=== PATIENT | female | born 2000 | race Caucasian/White ===

== ENCOUNTER 2022-07-02 14:01 | Outpatient (CLI) | payer OTHER, SELFPAY ==
--- NOTE | ~2022-07-02 | US_ITS ---
EXAMINATION: US OB BPP wo non-stress DATE: 07/02/2022 15:37 INDICATION: Hypertension during third trimester TECHNIQUE: Real-time pelvic ultrasound was performed. The interpreting radiologist was not present fo r the study. COMPARISON: None. FINDINGS: There is a single living fetus in vertex presentation. The placenta is fundal. heart rate is 13 6 beats per minute (bpm). Biophysical profile performed by the technologist: breathing (30 sec sustained breathing in 30 minutes): 2 out of 2 movement (3 gross body movements in 30 minutes): 2 out of 2 tone (one episode of dajfail-uaarsnawh-jdanadw limb movement): 2 out of 2 Amniotic fluid pocket (2 cm): 2 out of 2 Total score: 8 out of 8 IMPRESSION: 1. Single living fetus in vertex presentation. 2. Biophysical profile 8 out of 8. Reviewed, dictated and finalized at location B. UNICATIONS ATTENDANT
[2022-07-02 14:30] VITALS: BP 134/77; PULSE 110
[2022-07-02 14:39] LABS: Basophils Absolute Auto 0.1 K/mm3 (0.0-0.1); Basophils Percent Auto 0.6 % (0.2-1.2); Eosinophils Absolute Auto 0.1 K/mm3 (0-0.3); Eosinophils Percent Auto 0.7 % (0-4.4); Hematocrit 33.3 % (37.0-47.0); Hemoglobin 10.8 g/dL (12.0-15.0); Immature Granulocyte Absolute 0.58 K/mm3 (0.00-0.031); Immature Granulocyte Percent A 3.2 % (0-0.5); Lymphocytes Absolute Auto 2.21 K/mm3 (0.9-3.2); Lymphocytes Percent Auto 12.2 % (18.3-44.2); Mean Corpuscular HGB Conc 32.4 g/dl (32-36); Mean Corpuscular Hemoglobin 25.5 pg (26-34); Mean Corpuscular Volume 78.5 fl (80-100); Mean Platelet Volume 8.7 fl (7.4-10.4); Monocytes Absolute Auto 1.1 K/mm3 (0.1-0.6); Monocytes Percent Auto 5.9 % (2.6-8.5); Neutrophils Absolute Auto 14.1 K/mm3 (1.3-6.7); Neutrophils Percent Auto 77.4 % (45.5-73.1); Platelet Count Result 381 k/mm3 (150-375); Red Blood Count 4.24 M/mm3 (4.2-5.4); Red Cell Distribution Width 13.8 % (11.5-14.5); White Blood Count 18.2 K/mm3 (4.5-10.0)
[2022-07-02 14:39] LABS: Total Protein Urine Random 10 mg/dL; Ur Ttl Prot Creatinine Ratio 0.17 mg/mg (0-0.20)
[2022-07-02 14:44] VITALS: BP 134/77
[2022-07-02 14:45] VITALS: BP 126/65; PULSE 94
[2022-07-02 14:51] LABS: Alanine Aminotransferase 17 U/L (6-35); Albumin Level 3.7 g/dL (3.5-5.1); Alkaline Phosphatase 100 U/L (38-126); Anion Gap 8 mmol/L (8-16); Aspartate Amino Transferase 20 U/L (14-36); Bilirubin,Total 0.2 mg/dL (0.2-1.3); Blood Urea Nitrogen 3 mg/dL (7-17); Calcium 8.4 mg/dL (8.4-10.2); Carbon Dioxide 22 mmol/L (22-30); Chloride 105 mmol/L (98-107); Estimated Glomerular Filt Rate > 60; Glucose 151 mg/dL (65-110); Potassium 3.8 mmol/L (3.4-5.0); Sodium 135 mmol/L (137-145); Uric Acid 3.7 mg/dL (2.5-7.5)
[2022-07-02 15:01] VITALS: BP 116/61; PULSE 90
[2022-07-02 15:24] VITALS: BP 116/61; PULSE 90
[2022-07-02 15:43] LABS: Add Urine Microscopic? YES; Appearance Urine Slightly Cloudy (Clear); Bilirubin Urine Negative (Negative); Blood Urine Negative (Negative); Color Urine Light Yellow (Yellow); Glucose Urine UA 1+ mg/dL (Negative); Ketones Urine Negative (Negative); Leukocyte Esterase Ur Negative LEU/UL (NEGATIVE); Nitrate Urine Negative (Negative); Protein Urine Negative (Negative); Urobilinogen Urine 0.2 mg/dL (<2.0); pH Urine 6.5 (5.0-9.0)
[2022-07-02 15:54] LABS: Bacteria Urine Trace /hpf; RBC Urine 0-2 /hpf (0-2); Squamous Epithelial Cell Urine Many /hpf (Few)
== END 2022-07-02 15:50 | disposition home or self-care (01) ==
LOC: ANHOBOP 14:12 → ANHLDR 14:13
PROVIDERS: Advanced Practice Midwife; Visit Provider Obstetrics & Gynecology
DX: O13.9 Gestational [pregnancy-induced] hypertension without significant proteinuria, unspecified trimester (principal)
CPT/HCPCS: 36415; 59025; 76819; 80053; 81001; 82570; 84156; 84550; 85025; 87086; 99199

== ENCOUNTER 2022-07-09 14:52 | Outpatient (CLI) | payer OTHER, SELFPAY ==
[2022-07-09] VITALS (7 sets, daily range): BP systolic 120–135; BP diastolic 71–82; PULSE 95–110; BMI 43.9
--- NOTE | ~2022-07-09 | US_ITS ---
EXAMINATION: US OB BPP wo non-stress DATE: 07/09/2022 17:29 INDICATION: Hypertension. TECHNIQUE: Real-time ultrasound of the pelvis was performed. COMPARISON: 07/02/2022. FINDINGS: There is a single living fetus in vertex presentation, longitudinal lie. The placenta is posterior. heart rate is 130 beats per minute (bpm). macro biometrics Biophysical profile performed by the technologist: breathing (30 sec sustained breathing in 30 minutes): 2 out of 2 movement (3 gross body movements in 30 minutes: 2 out of 2 tone (one episode of fjnirtz-boksdvlog-oztecwq limb movement): 2 out of 2 Amniotic fluid pocket (2 cm): 2 out of 2 Total score: 8 out of 8 IMPRESSION: 1. Single living fetus in vertex presentation. 2. Posterior placenta. 3. Biophysical profile 8 out of 8. Reviewed, dictated and finalized at location K. Y LEVEL RECEPTIONIST
--- NOTE | 2022-07-09 16:20 | PC.NURSE ---
Dr. Groves called to check on pt and informed FHT's reactive and BP's normal. Waiting for lab results and for BPP.
[2022-07-09 16:43] LABS: Add Urine Microscopic? YES; Appearance Urine Slightly Cloudy (Clear); Basophils Absolute Auto 0.1 K/mm3 (0.0-0.1); Basophils Percent Auto 0.6 % (0.2-1.2); Bilirubin Urine Negative (Negative); Blood Urine Trace-Intact (Negative); Color Urine Yellow (Yellow); Eosinophils Absolute Auto 0.1 K/mm3 (0-0.3); Eosinophils Percent Auto 0.5 % (0-4.4); Glucose Urine UA Negative (Negative); Hematocrit 34.9 % (37.0-47.0); Immature Granulocyte Absolute 0.91 K/mm3 (0.00-0.031); Immature Granulocyte Percent A 4.2 % (0-0.5); Immature Platelet Fraction Pct 3.2 % (0.9-11.2); Ketones Urine Negative (Negative); Leukocyte Esterase Ur Negative LEU/UL (Negative); Lymphocytes Absolute Auto 2.66 K/mm3 (0.9-3.2); Lymphocytes Percent Auto 12.3 % (18.3-44.2); Mean Corpuscular HGB Conc 31.5 g/dl (32-36); Mean Corpuscular Volume 79.3 fl (80-100); Mean Platelet Volume 9.6 fl (7.4-10.4); Monocytes Absolute Auto 1.4 K/mm3 (0.1-0.6); Monocytes Percent Auto 6.5 % (2.6-8.5); Neutrophils Absolute Auto 16.5 K/mm3 (1.3-6.7); Neutrophils Percent Auto 75.9 % (45.5-73.1); Nitrate Urine Negative (Negative); Platelet Count Result 415 k/mm3 (150-375); Protein Urine Negative (Negative); Red Cell Distribution Width 14.2 % (11.5-14.5); Urobilinogen Urine 0.2 mg/dL (<2.0); White Blood Count 21.7 K/mm3 (4.5-10.0)
[2022-07-09 16:51] LABS: Alanine Aminotransferase 18 U/L (6-35); Albumin Level 3.7 g/dL (3.5-5.1); Alkaline Phosphatase 109 U/L (38-126); Anion Gap 8 mmol/L (8-16); Aspartate Amino Transferase 20 U/L (14-36); Bilirubin,Total 0.3 mg/dL (0.2-1.3); Blood Urea Nitrogen 3 mg/dL (7-17); Calcium 8.7 mg/dL (8.4-10.2); Carbon Dioxide 23 mmol/L (22-30); Chloride 105 mmol/L (98-107); Estimated Glomerular Filt Rate > 60; Glucose 117 mg/dL (65-110); Potassium 3.6 mmol/L (3.4-5.0); Sodium 136 mmol/L (137-145); Uric Acid 2.9 mg/dL (2.5-7.5)
[2022-07-09 16:56] LABS: Amorphous Sediment Urine Few; Bacteria Urine Trace /hpf; Mucus Urine Rare /lpf; Squamous Epithelial Cell Urine Moderate /hpf (Few); WBC Urine 0-3 /hpf
[2022-07-09 17:22] LABS: Creatinine Urine 55.9 mg/dL; Total Protein Urine Random 13 mg/dL; Ur Ttl Prot Creatinine Ratio 0.23 mg/mg (0-0.20)
[2022-07-09 17:33] LABS: Platelet Estimate Increased (Adequate)
[2022-07-09 17:34] LABS: Ovalocytes 1+ (NORMAL); Schistocytes None Seen (NORMAL)
--- NOTE | 2022-07-09 17:58 | PC.NURSE ---
Dr. Groves informed BPP 02/10 and lab results. Discussed pt's elevated WBC count. Phone taken to pt for MD to talk with her over speakerphone. Pt denies being sick recently; just had a yeast infection approximately 1 month ago. Discussed kick counts 3 times/day and to start 24 hr urine in am and when specimen is returned to the office they should draw a repeat CBC. Discharge orders received.
== END 2022-07-09 18:15 | disposition home or self-care (01) ==
LOC: ANHOBOP 15:12 → ANHOBPP 15:16
PROVIDERS: Visit Provider Obstetrics & Gynecology
DX: O36.8190 Decreased fetal movements, unspecified trimester, not applicable or unspecified (principal)
CPT/HCPCS: 36415; 59025; 76819; 80053; 81001; 82570; 84156; 84550; 85025; 85055; 99199

== ENCOUNTER 2022-07-12 15:01 | Outpatient (NON) | payer OTHER, SELFPAY ==
[2022-07-12 15:13] VITALS: BMI 43.9
[2022-07-12 15:36] LABS: Collection Time Urine 24 HOURS
[2022-07-12 15:46] LABS: Total Volume 24 Hour Urine 2400 ml
[2022-07-12 15:57] LABS: Creatinine Clearance Urine 200.5 ml/min (75-125); Creatinine Urine 63.2 mg/dL; Patient Weight 272 Lbs; Total Protein Urine 24 Hr 240 mg/24hr (28-141); Total Protein Urine Random 10 mg/dL
== END 2022-07-12 15:02 | disposition home or self-care (01) ==
LOC: ANHOBOP 15:07
PROVIDERS: Visit Provider Obstetrics & Gynecology
DX: O13.9 Gestational [pregnancy-induced] hypertension without significant proteinuria, unspecified trimester (principal)
CPT/HCPCS: 81050; 82575; 84156

== ENCOUNTER 2022-07-31 22:59 | Observation (INO) | payer OTHER, SELFPAY ==
[2022-08-01 00:39] VITALS: BMI 44.1
--- NOTE | 2022-08-01 00:39 | OBADM ---
This patient, Zoraida Gonzalez, admitted to the OB room Labor/Delivery/Recovery 105 for observation. Patient/family oriented to hospital policies and general routines including ID bracelet, bed and alarms, visiting hours, pain management, procedures, bathroom and other care routines, personal items, smoking policy, room service/diet, and visiting hours. Patient/Family are encouraged to report perceived risks to care and to ask questions if they do not understand what they are told or what they should do.
--- NOTE | 2022-08-25 09:23 | PM.OBTRLD ---
OB - Triage/Final Diagnosis Visit Information Comments/Additional reasons for admission: I have assessed the risk for this patient, Zoraida Gonzalez, and determined that she would benefit from observation care. Final Diagnosis (1) False labor: Code(s): O47.9 - False labor, unspecified Status: Acute
== END 2022-08-01 00:54 | disposition home or self-care (01) ==
PROVIDERS: Admitting Provider Obstetrics & Gynecology; Visit Provider Obstetrics & Gynecology
DX: O47.9 False labor, unspecified (principal)
CPT/HCPCS: G0378; G0379

== ENCOUNTER 2022-08-11 05:02 | Inpatient (IN) | payer OTHER, SELFPAY ==
[2022-08-11] VITALS (92 sets, daily range): BP systolic 114–152; BP diastolic 59–93; PULSE 74–112; RESP 18; TEMP 36.8–37.7; O2SAT 98–100; BMI 44.1
--- OUTSIDE RECORDS SUMMARY | 2022-08-11 05:07 | XMS_ITS | Clinical Summary ---
Author Name Unknown Address [address] [place] [address] Phone Organization [facility] Address [address] [place] [address] Phone Care Team Providers Care Elevated Work Platform Operator Name Role Phone ANNE HERNANDEZ, VASILIY Mitchell Primary Care Provider [phone] Reason for Visit and Chief Complaint * PHONE CALL Problems Includes: Problems addressed during this encounter and other active Problems All Visits Onset Date Resolved Date Provider Condition S tatus Essential Hypertension Benign 11/04/2015 VASILIY RODRÍGUEZ MD Active Last Documented On 11/04/2015 7:56PM ; [facility] Note: Unchanged Plan of Treatment No Plan of Treatment Recorded Assessments Includes: Assessments from this encounter No Assessments Recorded Medical Equipment - Implanted Devices Includes: Current Devices No Medical Equipment Recorded Medications Administered Includes: Administered Medications from this encounter No Administered Medications Recorded Results Includes: Results discussed during this encounter No Results Recorded For Specified Dates History of Present Illness Includes: History of Present Illness from this encounter No History of Present Illness Recorded Social History No Social History Recorded - Smoking Status Unknown Medical History Includes: Medical History addressed during this encounter No Medical History Recorded Family History Includes: Family History addressed during this encounter No Family History Recorded Review of Systems Includes: Review of Systems from this encounter No Review of Systems Recorded Mental Status Includes: Mental Status from this encounter No Mental Status Recorded Functional Status Includes: Functional Status from this encounter No Functional Status Recorded
--- OUTSIDE RECORDS SUMMARY | 2022-08-11 05:07 | XMS_ITS | Clinical Summary ---
Author Name Unknown Address [address] [place], [place] Phone Organization [facility] Address [address] [place] [address] Phone Care Team Providers Care Allergy Nurse Name Role Phone ANNE HERNANDEZ, VASILIY Mitchell Primary Care Provider [phone] Reason for Visit and Chief Complaint The Chief Complaint is: Patient thinks she may have ringworm- Vitals taken by patient at home. ~ ~TELEHEALTH VISIT USING [employer] AND WE DISCUSSED HER ISSUES. SHE WAS AWARE THIS IS TELEVISIT AND THAT THOUGH WE MAKE ALL EFFORTS TO BE SECURE WE CANNOT GARENTEE SECURE CONNECTION AND SHE AGREED TO THE VISIT ANYWAY. VISIT LASTED ABOUT 12-15 MINUTES Problems Includes: Problems addressed during this encounter and other active Problems Current Visit Onset Date Resolved Date Provider Lucina richards Status Essential Hypertension Benign 11/04/2015 VASILIY RODRÍGUEZ MD Active Last Documented On 11/04/2015 7:56PM ; [facility] Note: Unchanged Plan of Treatment No Plan of Treatment Recorded Assessments Includes: Assessments from this encounter Findings - Tinea corporis [B35.4 - Tinea corporis] - Last Documented On 10/29/2020 5:50AM ; [facility] Medical Equipment - Implanted Devices Includes: Current Devices No Medical Equipment Recorded Medications Includes: Medications discussed during this encounter and other current Medications Discontinued / Stopped on this date CHILO HINTON-MILTON on 06/25/2020 Fluconazole 150 MG Oral Tablet Provider: CHILO STERN Diagnosis: Tinea leah
--- OUTSIDE RECORDS SUMMARY | 2022-08-11 05:07 | XMS_ITS | Clinical Summary ---
Author Name Unknown Address [address] [place] [address] [address] [facility] Address [address] [place] [address] Phone Care Team Providers Care Medical Record Transcriber Name Role Phone ANNE HERNANDEZ, VASILIY Mitchell Primary Care Provider [phone] Reason for Visit and Chief Complaint [Patient Encounter] Problems Includes: Problems addressed during this encounter and other active Problems All Visits Onset Date Resolved Date Provider Condition S tatus Essential Hypertension Benign 11/04/2015 VASILIY RODRÍGUEZ MD Active Last Documented On 11/04/2015 7:56PM ; [facility] Note: Unchanged Plan of Treatment No [...]
--- OUTSIDE RECORDS SUMMARY | 2022-08-11 05:07 | XMS_ITS | Clinical Summary ---
Author Name Unknown Address [address] [place] [address] Phone Organization [facility] Address [address] [place] [address] Phone Care Team Providers Care Campaign Worker Name Role Phone ANNE HERNANDEZ, VASILIY Mitchell Primary Care Provider [phone] Reason for Visit and Chief Complaint * PHONE CALL Problems Includes: Problems addressed during this encounter and other active Problems All Visits Onset Date Resolved Date Provider Condition S tatus Essential Hypertension Benign 11/04/2015 VASILIY RODRÍGUEZ MD Active Last Documented On 11/04/2015 7:56PM ; [facility] Note: Unchanged Plan of Treatment No Plan of Treatment Recorded Assessments Includes: Assessments from this encounter No Assessments Recorded Medical Equipment - Implanted Devices Includes: Current Devices No Medical Equipment Recorded Medications Includes: Medications discussed during this encounter and other current Medications New / Renewed during this visit VASILIY RODRÍGUEZ MD on 05/17/2021 LamISIL AT 1% External Cream Provider: VASILIY RODRÍGUEZ MD 14 day supply: 42 gram, 1 refills Diagnosis: Tinea corporis Apply twice a day APPLY BID FOR 14-21 days Pharmacy: [facility], [address] - Past Medications on file
--- OUTSIDE RECORDS SUMMARY | 2022-08-11 05:07 | XMS_ITS ---
Care Plan - [facility] Created on: August 11, 2022 PAGE JOSHI : 2000 Sex: Female Author Name Unknown Address [address] [place] [address] Phone Organization [facility] Address [address] [place] [address] Phone Care Team Providers Care Production Statistical Clerk Name Role Phone VASILIY RODRÍGUEZ MD Primary Care Provider [phone]
--- OUTSIDE RECORDS SUMMARY | 2022-08-11 05:07 | XMS_ITS ---
Author Name Unknown Address [address] [place] [address] Phone Organization [facility] Address [address] [place] [address] Phone Care Team Providers Care Nuclear Weapons Mechanical Specialist Name Role Phone ANNE HERNANDEZ, VASILIY Mitchell Primary Care Provider [phone] Reason for Referral Date Encounter Description Provider Reason for Referral 10/11/15 PROBLEM VISIT VASILIY RODRÍGUEZ MD Request Consultation By Allied Medical Professional Problems Includes: Active, inactive, and resolved Problems All Visits Onset Date Resolved Date Provider Condition S tatus Chronic Hypertensive Heart Disease Complicating Puerperium 01/12/2019 Unknown AMITA FLEMING WHNP-BC Resolved Last Documented On 05/23/2019 4:00PM ; [facility] Note: Unchanged Pre-existing essential htn comp , first trimester 06/30/2018 Unknown AMITA FLEMING WHNP-BC Resolved Last Documented On 05/23/2019 4:00PM ; [facility] Note: Unchanged History of Allergic Rhinitis 06/30/2018 Unknown GREGG MORGAN MD Resolved Last Documented On 02/28/2019 3:35PM ; [facility] Note: was Closed. History of Breast Disorders 06/30/2018 Unknown GREGG MORGAN MD Resolved Last Documented On 02/28/2019 3:35PM ; [facility]
[2022-08-11 05:52] LABS: Basophils Absolute Auto 0.1 K/mm3 (0.0-0.1); Basophils Percent Auto 0.6 % (0.2-1.2); Eosinophils Percent Auto 0.3 % (0-4.4); Hematocrit 35.8 % (37.0-47.0); Hemoglobin 11.4 g/dL (12.0-15.0); Immature Granulocyte Absolute 0.26 K/mm3 (0.00-0.031); Immature Granulocyte Percent A 1.9 % (0-0.5); Lymphocytes Absolute Auto 2.97 K/mm3 (0.9-3.2); Lymphocytes Percent Auto 21.3 % (18.3-44.2); Mean Corpuscular HGB Conc 31.8 g/dl (32-36); Mean Corpuscular Hemoglobin 24.4 pg (26-34); Mean Corpuscular Volume 76.7 fl (80-100); Mean Platelet Volume 9.3 fl (7.4-10.4); Neutrophils Absolute Auto 9.6 K/mm3 (1.3-6.7); Neutrophils Percent Auto 68.9 % (45.5-73.1); Platelet Count Result 372 k/mm3 (150-375); Red Blood Count 4.67 M/mm3 (4.2-5.4); Red Cell Distribution Width 15.8 % (11.5-14.5); White Blood Count 13.9 K/mm3 (4.5-10.0)
--- NOTE | 2022-08-11 05:54 | LDADM ---
This patient, Zoraida Gonzalez, was admitted to Labor/Delivery/Recovery 105 on 08/11/22 at 05:02. Plans for labor, pain management and were discussed with patient. Patient/family oriented to hospital policies and general routines including ID bracelet, bed and alarms, visiting hours, pain management, procedures, bathroom and other care routines, personal items, smoking policy, room service/diet and guest tray routines, infant security routines, and visiting hours. Patient/Family are encouraged to report perceived risks to care and to ask questions if they do not understand what they are told or what they should do. See OBIX for further documentation.
[2022-08-11 06:04] LABS: Alanine Aminotransferase 20 U/L (6-35); Albumin Level 3.2 g/dL (3.5-5.1); Alkaline Phosphatase 131 U/L (38-126); Anion Gap 6 mmol/L (8-16); Aspartate Amino Transferase 27 U/L (14-36); Bilirubin,Total 0.4 mg/dL (0.2-1.3); Blood Urea Nitrogen 5 mg/dL (7-17); Calcium 8.6 mg/dL (8.4-10.2); Carbon Dioxide 23 mmol/L (22-30); Chloride 108 mmol/L (98-107); Estimated CRCL calculation 237 ml/min; Estimated Glomerular Filt Rate > 60; Glucose 89 mg/dL (65-110); Potassium 3.8 mmol/L (3.4-5.0); Sodium 137 mmol/L (137-145)
[2022-08-11] MEDS: LACTATED RINGERS 1,000 ML 125 ML IV CONT ×2 (06:25→09:23)
[2022-08-11] MEDS: OXYTOCIN 30 UNITS/NS 500 ML 30 UNITS/500 ML BAG IV CONT (06:28)
--- NOTE | 2022-08-11 07:54 | WPDOBADMIT ---
Obstetrics - Admit Note Admission Note: 22 y/o at 38 weeks here for induction for CHTN. Rare contractions FHR category 1 Cervix 70/-2 Arom moderate amount of clear odorless fluid Epidural as desired Anticipate record reviewed. No pertinent additions to the history and/or any subsequent changes in the physical findings that are not consistent with the expected course of the were found. Additions to the history and/or subsequent changes in the physical findings follow. None.
--- NOTE | 2022-08-11 07:55 | PM.IMHP ---
H&P: HPI History of Present Illness Date/Time: 08/11/22 07:55 Chief Complaint: Induction of labor 38weeks CHTN Review of Systems Review of Systems: All systems reviewed & are unremarkable except as noted in HPI and below Constitutional: Constitutional: Reports as per HPI and Reports no additional constitutional complaints Eyes: Eyes: Reports as per HPI ENT: Reports system reviewed and no additional complaints, except as documented Cardiovascular: Cardiovascular: Reports as per HPI Respiratory: Respiratory: Reports as per HPI Gastrointestinal: Gastrointestinal: Reports as per HPI Genitourinary: Genitourinary: Reports no additional female genitourinary complaints Musculoskeletal: Musculoskeletal: Reports no additional musculoskeletal complaints Integumentary/Breasts: Skin/Breast: Reports system reviewed and no additional complaints, except as docu Neurologic: Reports system reviewed and no additional complaints, except as documented Psychiatric: Psychiatric: Reports no additional psychiatric complaints Endocrine: Endocrine: Reports no additional endocrine complaints Hematologic/Lymphatic: Hematologic/Lymphatic: Reports no additional hematologic/lymphatic complaints Allergic/Immunologic: Allergic/Immunologic: Reports no additional allergic/immunologic complaints [facility] Family History Family History (Updated 07/30/22 @ 12:21 by Chica Rubin RN) Mother Hypertension Father Hypertension Social History Social History Smoking status: Never smoker Second hand tobacco smoke exposure: No Substance use: never Lack of Transportation: No Lack of Food: Never True Current Housing: I Have Housing Concerned About Future Housing: No Difficulty Paying Gas/Electric Bills: No Difficulty Paying for Meds: No Currently Unemployed: No Education: High School Diploma/GED Difficulty w/ Childcare or Family Care: No Spiritual care concerns: No Meds Home Medications and Allergies Home Medications Medication Instructions Recorded Confirmed Type nifedipine 30 mg tablet,extended 30 mg PO DAILY 07/02/22 08/11/22 History release 24 hr vit no.133-ferrous 1 tablet PO DAILY 07/02/22 08/11/22 History fumarate 28 mg-folic acid 800 mcg tablet () Allergies Allergy/AdvReac Type Severity Reaction Status Date / Time Penicillins Allergy Intermediate Unknown Verified 08/11/22 06:24 Vital Signs Vital Signs - 24 hr 08/11/22 05:54 08/11/22 06:01 08/11/22 06:16 Pulse Rate 83 87 79 Blood Pressure 139/83 139/83 136/92 H 08/11/22 06:31 08/11/22 06:46 08/11/22 07:01 Pulse Rate 85 81 83 Blood Pressure 135/78 130/82 128/80 08/11/22 07:16 08/11/22 07:31 08/11/22 07:46 Pulse Rate 86 93 86 Blood Pressure 134/84 138/75 139/74 Exam Const: General: cooperative and healthy appearing Orientation/consciousness: oriented to person, oriented to place, oriented to time and patient oriented x3 Limitations: no limitations HENMT: Head: normal to inspection Ears: hearing grossly normal bilaterally Face/Nose/Sinus: Normal external nose present and normal facial exam Face and sinus: normal facial exam Mouth: Yes Normal oral and palatal mucosa present Teeth and gingiva: dentition normal Throat: posterior oropharynx normal Eyes: General: appearance normal, both eyes and all related structures Neck: Neck: normal visual inspection Thyroid: thyroid normal Chest: Chest palpation & inspection: normal inspection of the chest Resp: Effort & Inspection: normal respiratory effort Auscultation: clear to auscultation bilaterally Cardio: Rate: regular rate Rhythm: regular rhythm GI: Inspection: normal to inspection : General: Yes bimanual renal exam normal bilaterally Skin: General skin exam: normal color and no rashes or lesions noted Neuro: General: oriented to person, oriented to place, oriented to time and patient oriented x3 Extrem: General: n
[2022-08-11 10:12] LABS: Rapid Plasma Reagin Non-Reactive (NonReactive)
--- NOTE | 2022-08-11 10:19 | WPDANESEPP ---
Anes - Eval Pre Procedure Procedure: Labor Epidural Date/Time: 08/11/22 10:19 Surgeon: Germain Preop Diagnosis: Labor Pain Pre Op Diagnosis: IOL Patient Data Age: 22 Gender: F Height: 1.68 m Weight: 124 kg Last Vital Signs Pulse 98 08/11/22 10:16 BP 137/68 08/11/22 10:16 Pulse Ox 100 08/11/22 10:15 Allergies Allergy/AdvReac Type Severity Reaction Status Date / Time Penicillins Allergy Intermediate Unknown Verified 08/11/22 06:24 Home Medications Medication Instructions Recorded Confirmed Type nifedipine 30 mg tablet,extended 30 mg PO DAILY 07/02/22 08/11/22 History release 24 hr vit no.133-ferrous 1 tablet PO DAILY 07/02/22 08/11/22 History fumarate 28 mg-folic acid 800 mcg tablet () Laboratory Tests 08/11/22 08/11/22 08/11/22 05:43 05:43 05:43 WBC 13.9 K/mm3 H K/mm3 (4.5-10.0) RBC 4.67 M/mm3 M/mm3 (4.2-5.4) Hgb 11.4 g/dL L g/dL (12.0-15.0) Hct 35.8 % L % (37.0-47.0) MCV 76.7 fl L fl (80-100) MCH 24.4 pg L pg (26-34) MCHC 31.8 g/dl L g/dl (32-36) RDW 15.8 % H % (11.5-14.5) Plt Count 372 k/mm3 k/mm3 (150-375) MPV 9.3 fl fl (7.4-10.4) Immature Gran % (Auto) 1.9 % H % (0-0.5) Neut % (Auto) 68.9 % % (45.5-73.1) Lymph % (Auto) 21.3 % % (18.3-44.2) Woods % (Auto) 7.0 % % (2.6-8.5) Eos % (Auto) 0.3 % % (0-4.4) Baso % (Auto) 0.6 % % (0.2-1.2) Lymph # (Auto) 2.97 K/mm3 K/mm3 (0.9-3.2) Woods # (Auto) 1.0 K/mm3 H K/mm3 (0.1-0.6) Eos # (Auto) 0.0 K/mm3 K/mm3 (0-0.3) Baso # (Auto) 0.1 K/mm3 K/mm3 (0.0-0.1) Abs Immat Gran (auto) 0.26 K/mm3 H K/mm3 (0.00-0.031) Absolute Neuts (auto) 9.6 K/mm3 H K/mm3 (1.3-6.7) Absolute Nucleated RBC 0.0 K/mm3 K/mm3 (0.0-0.012) Nucleated RBC % 0.0 % % (0.0-0.2) Sodium Potassium Chloride Carbon Dioxide Anion Gap BUN Creatinine Estim Creat Clear Calc Estimated GFR Glucose Uric Acid 5.0 mg/dL mg/dL (2.5-7.5) Calcium Total Bilirubin AST ALT Alkaline Phosphatase Total Protein Albumin RPR Non-reactive (NonReactive) Blood Type Antibody Screen 08/11/22 08/11/22 05:43 05:43 WBC RBC Hgb Hct MCV MCH MCHC RDW Plt Count MPV Immature Gran % (Auto) Neut % (Auto) Lymph % (Auto) Woods % (Auto) Eos % (Auto) Baso % (Auto) Lymph # (Auto) Woods # (Auto) Eos # (Auto) Baso # (Auto) Abs Immat Gran (auto) Absolute Neuts (auto) Absolute Nucleated RBC Nucleated RBC % Sodium 137 mmol/L mmol/L (137-145) Potassium 3.8 mmol/L mmol/L (3.4-5.0) Chloride 108 mmol/L H mmol/L (98-107) Carbon Dioxide 23 mmol/L mmol/L (22-30) Anion Gap 6 mmol/L L mmol/L (8-16) BUN 5 mg/dL L mg/dL (7-17) Creatinine 0.40 mg/dL L mg/dL (0.7-1.0) Estim Creat Clear Calc 237 ml/min ml/min Estimated GFR > 60 (59 - ) Glucose 89 mg/dL mg/dL (65-110) Uric Acid Calcium 8.6 mg/dL mg/dL (8.4-10.2) Total Bilirubin 0.4 mg/dL mg/dL (0.2-1.3) AST 27 U/L U/L (14-36) ALT 20 U/L U/L (6-35) Alkaline Phosphatase 131 U/L H U/L (38-126) Total Protein 7.0 g/dL g/dL (6.3-8.2) Albumin 3.2 g/dL L g/dL (3.5-5.1) RPR Blood Type O Positive Antibody Screen Negative P
[2022-08-11] MEDS: LACTATED RINGERS 1,000 ML 75 ML IV CONT (11:31)
[2022-08-11] MEDS: OXYTOCIN 30 UNITS/NS 500 ML 30 UNITS/500 ML BAG 125 UNITS IV CONT (13:59)
--- NOTE | 2022-08-11 14:46 | PM.OBPRVD ---
OB - Delivery Note Procedure Delivery date: 08/11/22 Procedure: Events: Gestational Hypertension (Chronic Hypertension) Induction method: Per Pitocin Protocol Delivery monitor: External FHT, External Uterine and Internal Uterine Route of delivery: Episiotomy description: None Laceration Description: None Specimen: Yes Anesthesia type: Epidural Narrative: Mother and baby in stable condition. Cord gasses collected and handed off to staff. [place] Baby Date of : 08/11/22 Time of : 13:19 Weeks of gestation at delivery: 38 Infant gender: Female Weight (pounds): 7 presentation: vertex position: Right Occiput Anterior Placenta delivery description: Spontaneous Cord Vessel Description: 3 Vessels and Delayed Cord Clamping score one minute: 9 score five minutes: 9
--- NOTE | 2022-08-11 15:08 | PC.NURSE ---
1425 - Introductions were made. Infant is skin to skin and infant is demonstrating feeding cues and crawling to the breast. Assisted mother with to the left breast using cross cradle positioning. Infant cries, latches and bites at times, then effectively breast feeds until self detaches and cries again. Mother works well with her infant and states she has breastfed her first infant for 4 months. Mother denies pain when is effectively with good rocking jaw movement.
[2022-08-11] MEDS: IBUPROFEN 600 MG TABLET PO (19:40)
[2022-08-12 03:50] VITALS: BP 111/86; PULSE 97; RESP 18; TEMP 36.9
[2022-08-12 05:03] LABS: Hematocrit 30.2 % (37.0-47.0); Hemoglobin 9.5 g/dL (12.0-15.0)
[2022-08-12] MEDS: MULTIVIT/MIN/PREN/FOL AC/IRON TABLET 1 TAB PO (07:14)
[2022-08-12] MEDS: POLYSACCHARIDE IRON COMPLEX 150 MG CAPSULE PO (07:14)
[2022-08-12] MEDS: IBUPROFEN 600 MG TABLET PO (07:14)
[2022-08-12] MEDS: DOCUSATE SODIUM 100 MG CAPSULE PO (07:15)
--- NOTE | 2022-08-12 07:29 | WPDANLDPN2 ---
Anes-Prog Note L&D Date/Time: 08/12/22 07:29 Comfortable throughout: labor and delivery Neuraxial method: epidural Epidural/Spinal procedure site: clean & non-tender Neuro status: Neuro function grossly intact. Cardiovascular status: normal Respiratory status: normal Airway patency: baseline Mental status: baseline Post-Op hydration status: normal Vital Signs: Last Vital Signs Temp 36.9 C 08/12/22 03:50 Pulse 97 08/12/22 03:50 Resp 18 08/12/22 03:50 BP 111/86 08/12/22 03:50 Pulse Ox 98 08/11/22 16:10 O2 Del Method Room Air 08/11/22 19:40 Pain score (VAS): 10 I/O: Intake & Output 08/11/22 08/11/22 08/12/22 15:59 23:59 07:59 Intake Total 2000 850 Output Total 124 516 Balance 1876 334 Post-procedural complaints: none Patient feedback: Patient satisfied with anesthetic care.
[2022-08-12 07:40] VITALS: BP 127/66; PULSE 87; RESP 16; TEMP 36.9; O2SAT 98
--- NOTE | 2022-08-12 08:07 | PM.OBPNVD ---
OB - PN: Subj Subjective Date/time seen: 08/12/22 08:07 Patient comments: no complaints baby status: doing well OB - PN: Obj Data Labs 08/12/22 03:52 08/11/22 05:43 Labs: Laboratory Results - last 24 hr 08/11/22 08/12/22 05:43 03:52 Hgb 9.5 L Hct 30.2 L RPR Non-reactive OB - PN A/P Plan day: 1 Plan: routine care Time Spent With Patient Time: Total time spent is greater than 50% in coordination of care (as documented) at patient's floor/unit and/or counseling patient: Time with patient: less than 15 minutes Review of Systems Review of Systems: All systems reviewed & are unremarkable except as noted in HPI and below Exam Narrative: Fundus firm and vaginal flow controlled. No lower ext redness, warmth, or edema. Negative homans. Denies h/a, v/d or e/p. Reflexes normal. Const: General: comfortable Chest: Breast/axilla inspection: normal inspection of the breasts Resp: Effort & Inspection: normal respiratory effort Cardio: Rate: regular rate GI: GI Palp: Yes Soft to palpation Psych: Appearance: grossly normal Affect: normal affect Attitude: cooperative Thought content: Yes Normal thought content present Judgement: Good judgement present (Psych)
[2022-08-12] MEDS: NIFEdipine 30 MG TAB.ER.24 PO (09:52)
[2022-08-12 12:37] VITALS: BP 123/73; PULSE 88; RESP 16; TEMP 36.9; O2SAT 98
--- NOTE | 2022-08-12 16:38 | PC.NURSE ---
1500 Patient viewed the discharge video Mother & Baby Care, The First Two Weeks . Patient was given the opportunity and encouraged to ask questions. Patient verbalized understanding of information shared and has been given the mother/baby guide for home reference.
[2022-08-13 11:35] VITALS: BP 134/86; PULSE 82; RESP 20; TEMP 36.6; O2SAT 98
--- NOTE | 2022-08-24 08:52 | PM.OBDSVD ---
DS: Admitting Diagnosis Discharge Date 08/12/22 Admitting Diagnosis Labor DS: Discharge Diagnosis Discharge Diagnosis (1) Vaginal delivery: Code(s): O80 - Encounter for full-term uncomplicated delivery Status: Acute OB - DS: Summary OB Procedures : None OB Procedures Intrapartum: Spontaneous Vag Delivery OB Procedures: : None Time Spent with Patient Time attestation: Total time spent providing and/or coordinating discharge services: DS: Data Data Completed and Pending Completed studies during hospitalization: Pending at discharge 08/11/22 13:27 Surgical [PTH] Routine Discharge Plan Discharge Consulting providers: Isela Paredes Discharging Clinician: Iraida Woods Anticipated Discharge Date/Time: 08/12/22 15:30 Patient Disposition: Home, Self-Care Activity: as tolerated Diet: regular Discharge Instructions: Education: Mom and Baby Guide Given to: Mother Follow-Up: Call your delivering provider's office for an appointment to be seen in: 1 and 4 weeks Mom and baby should come to the [facility] for the follow-up appointment. Appointment Date/Time: Saturday, August 13, 2022 at 11:00 am What to expect at your follow-up visit: Physical Assessment Call [phone] if you are unable to keep your appointment time. BREAST CARE: * Wear a snug supportive bra. * For engorgement discomfort: Breast Feeding: * Apply warm moist washcloths * Express milk as needed to relieve engorgement * Wear loose clothing Bottle Feeding: * May apply ice packs * For sore nipples: * Identify correct latch-on * Apply warm moist washcloths before and after nursing * Air dry nipples after nursing * May apply Lansinoh cream to nipples PERINEAL CARE: * Until bleeding stops, use your ro bottle after urinating * Change your pad frequently throughout the day * You may take sitz baths several times a day (fill your bathtub with warm water and soak for 20 minutes.) Do NOT bathe in the water * No tub baths until seen by your physician - You may shower ACTIVITY: * Rest as much as possible. * Do not exercise or lift anything heavier than your baby (such as laundry or other children.) * Avoid stairs or driving as much as possible. * Do not put anything into the vagina. No douching, tampons, or sexual activity until seen by physician. NOTIFY PHYSICIAN IF YOU HAVE ANY QUESTIONS OR IF ANY OF THE FOLLOWING SYMPTOMS OCCUR: * If your episiotomy or incision becomes red, swollen, or more painful than what you have experienced in the hospital. * If your vaginal bleeding becomes foul smelling. * If your vaginal bleeding becomes more heavy than a period or if your bleeding changes from pink to bright red. However, you may pass an occasional walnut-sized clot once or twice for the first week . * If you experience a sharp, shooting pain in you calves. * If you discover a hard, reddened area on your breast or if you experience flu-like symptoms. DIET: * Eat regular, well-balanced meals. * Drink plenty of fluids daily. If , drink to thirst. Follow-up/Referrals: Iraida Woods CNM [Certified Nurse Roller Engraver] - Discharge Medications: Continued nifedipine 30 mg tablet extended release 24hr 30 mg PO DAILY 28-800 mg-mcg Tablet 1 tablet PO DAILY Date of admission: 08/11/22 05:02 Primary Care Provider: PHYSICIAN,HAT BODY INSPECTOR Admitting Provider: Iraida Woods Attending physician on admission: Radha Groves Condition: Stable
== END 2022-08-12 16:00 | disposition home or self-care (01) | DRG 560 ==
LOC: ANHLDR 05:03 → ANHOB2 16:14
PROVIDERS: Admitting Provider Advanced Practice Midwife; Visit Provider Obstetrics & Gynecology
DX: O10.92 Unspecified pre-existing hypertension complicating childbirth (principal); Z37.0 Single live birth; Z3A.38 38 weeks gestation of pregnancy; Z88.0 Allergy status to penicillin
CPT/HCPCS: 36415; 80053; 84550; 85014; 85018; 85025; 86592; 86850; 86900; 86901; 88307; A9270; J2590; J2795; J7120

== ENCOUNTER 2022-09-23 17:04 | Emergency (ER) | payer OTHER, SELFPAY ==
[2022-09-23 17:13] VITALS: BP 153/98; PULSE 76; RESP 20; TEMP 36.8; O2SAT 100
--- NOTE | 2022-09-23 17:23 | ED.DENTAL ---
HPI - Dental/Oral General Chief complaint: Dental/Oral Stated complaint: tooth pain Time Seen by Provider: 09/23/22 17:38 Mode of arrival: ambulatory Limitations: no limitations History of Present Illness HPI Narrative: 22-year-old female presents concern for right lower dental pain. Reports she saw a dentist about 5 weeks ago who told her she had a crack in her tooth and had no filling fell out. Reports she has an appointment with the dentist on October 14 to get the tooth fixed. She reports she has been taking Tylenol ibuprofen for pain with only mild occasional relief. She denies fever, headache, trouble swallowing MD Complaint: tooth pain Related Data Home Medications Medication Instructions Recorded Confirmed nifedipine 30 mg tablet,extended 30 mg PO BID 07/02/22 09/23/22 release 24 hr Allergies Allergy/AdvReac Type Severity Reaction Status Date / Time Penicillins Allergy Intermediate Unknown Verified 09/23/22 17:22 Review of Systems Review of Systems: CONSTITUTIONAL: Denies malaise, chills, sweats, or fever. EYES: Denies visual changes ENT: Denies rhinorrhea, congestion, sinus pain, otalgia or sore throat. Reports right lower dental pain CARDIOVASCULAR: Denies chest pain, palpitations RESPIRATORY: Denies cough or dyspnea. SKIN: Denies rash or itching. MUSCULOSKELETAL: Denies myalgia. NEUROLOGIC: Denies numbness, weakness, or headache. All systems reviewed & are unremarkable except as noted in HPI and below PMFSH Family History Family History (Updated 07/30/22 @ 12:21 by Chica Rubin RN) Mother Hypertension Father Hypertension Social History Social History Smoking status: Never smoker Second hand tobacco smoke exposure: No Substance use: never Lack of Transportation: No Lack of Food: Never True Current Housing: I Have Housing Concerned About Future Housing: No Difficulty Paying Gas/Electric Bills: No Difficulty Paying for Meds: No Currently Unemployed: No Education: High School Diploma/GED Difficulty w/ Childcare or Family Care: No Spiritual care concerns: No Comments At time of signature, agree with nursing past medical, surgical, social and family history. There is no relevant family history pertinent to the presenting complaint Exam Narrative: GENERAL: Well-appearing, well-nourished, and in no acute distress. HEAD: Normocephalic, atraumatic. EYES: PERRLA, sclera clear ENT: Nares clear, turbinates pink, no rhinorrhea or epistaxis. Mucous membranes moist. TM pearly coppola with sharp light reflex bilaterally; no tragal tenderness. Oropharynx without erythema or lesions. Tonsils not enlarged and without exudate. No missing teeth, broken teeth, no visible or palpable abscess NECK: Supple. No lymphadenopathy. CHEST: No respiratory distress. Speaks in full sentences. HEART: Regular rate and rhythm. SKIN: Warm, dry, no visible rash. NEURO: Alert and oriented x3. PSYCH: Normal mood and affect Course Course Emergency Course: Patient is aware of diagnosis, understands and agrees to treatment plan. Anticipatory guidance given. Patient agrees to follow-up as directed and is aware of reasons to seek care at the emergency department. Portions of this record may have been created with voice recognition software Level of Care: Express Care Visit Vital Signs Vital signs: Vital Signs Temperature 98.2 F 09/23/22 17:13 Pulse Rate 76 09/23/22 17:13 Respiratory Rate 20 09/23/22 17:13 Blood Pressure 153/98 H 09/23/22 17:13 Pulse Oximetry 100 09/23/22 17:13 Oxygen Delivery Room Air 09/23/22 17:13 Temperature 98.2 F 09/23/22 17:13 Pulse Rate 76 09/23/22 17:13 Respiratory Rate 20 09/23/22 17:13 Blood Pressure 153/98 H 09/23/22 17:13 Pulse Oximetry 100 09/23/22 17:13 Oxygen Delivery Room Air 09/23/22 17:13 Reviewed. MDM - Dental/Oral MDM Narrative Medical decision making narrative: Patients pain and complain
== END 2022-09-23 17:51 | disposition home or self-care (01) ==
PROVIDERS: Emergency Provider Nurse Practitioner
DX: K08.89 Other specified disorders of teeth and supporting structures (principal); I10 Essential (primary) hypertension
CPT/HCPCS: 99213; G0463

== ENCOUNTER 2022-09-28 11:15 | Emergency (ER) | payer OTHER, SELFPAY ==
[2022-09-28 11:20] VITALS: BP 149/87; PULSE 87; RESP 20; TEMP 36.9; O2SAT 100
[2022-09-28 11:29] VITALS: BP 149/87; PULSE 87; RESP 20; TEMP 36.9; O2SAT 100
--- NOTE | 2022-09-28 12:07 | ED.GENADULT ---
HPI - General Adult General Chief complaint: Upper Respiratory Infection Stated complaint: cold/flu Source: patient Mode of arrival: ambulatory Limitations: no limitations History of Present Illness HPI narrative: Patient presents for evaluation of sick symptoms. She reports clear rhinorrhea and a productive cough for last 3 days. No fever, chills, nausea, vomiting, diarrhea. She has experienced a sore throat. No underlying medical problems. She is currently on clindamycin for a dental infection. She has had COVID in the past twice, once 2 years ago and another time in August of this year. Her daughter is being evaluated here for similar symptoms. She does not smoke. She is not taking any medication to assist with her symptoms. Related Data Home Medications Medication Instructions Recorded Confirmed lisinopril 20 mg tablet 20 mg PO DIRECTED 09/28/22 09/28/22 Allergies Allergy/AdvReac Type Severity Reaction Status Date / Time Penicillins Allergy Intermediate Unknown Verified 09/28/22 11:29 Review of Systems Review of Systems: CONSTITUTIONAL: denies fever, chills or decreased activity HEENT: Reports sore throat and clear rhinorrhea. Denies any eye discharge or redness. Denies any otalgia CHEST: Reports cough. Denies wheezing, or difficulty breathing CARDIOVASCULAR: Denies any rapid heart rate or cool extremities ABDOMINAL: Denies any vomiting, diarrhea, or poor feeding : Denies any dysuria, decreased urine frequency BACK: Denies any lesions SKIN: Denies rash MUSCULOSKELETAL: Denies any extremity disuse or swelling NEURO: Denies any lethargy, irritability, or seizures PMF Past Medical History Medical History (Updated 09/28/22 @ 12:49 by MARY JANE Strickland, ) No pertinent past medical history Surgical History Surgical History No pertinent past surgical history Family History Family History Mother Hypertension Father Hypertension Social History Social History Smoking status: Never smoker Second hand tobacco smoke exposure: No Substance use: never Lack of Transportation: No Lack of Food: Never True Current Housing: I Have Housing Concerned About Future Housing: No Difficulty Paying Gas/Electric Bills: No Difficulty Paying for Meds: No Currently Unemployed: No Education: High School Diploma/GED Difficulty w/ Childcare or Family Care: No Spiritual care concerns: No Exam Narrative: GENERAL: Well-appearing, well-nourished, and in no acute distress. HEAD: Normocephalic, atraumatic. EYES: PERRLA and EOMI. ENT: Nares clear, no rhinorrhea or epistaxis. Mucous membranes moist. Oropharynx without tonsillar hypertrophy exudate or other lesions. Bilateral TMs pearly coppola nonbulging NECK: Supple. No adenopathy or masses. No carotid bruits or JVD CHEST: Clear to auscultation. No respiratory distress. No wheezes rales or rhonchi HEART: Regular rate and rhythm. No murmur heard. Normal peripheral pulses. ABDOMEN: Soft, nontender, nondistended, normal active bowel sounds. EXTREMITIES: Normal range of motion. No edema. SKIN: Warm, dry, no rash. NEURO: No focal deficits. Alert and oriented x3. PSYCH: Normal mood and affect. Course Course Emergency Course: This is a 22-year-old female who presented for evaluation of sick symptoms. COVID, influenza, strep were all negative. I did assess her daughter in all testing including RSV was negative. Exam is consistent with acute viral syndrome. Increase hydration. [id number] agents for symptom management. Follow up with primary provider. Go to the ER for worsening symptoms. Patient in agreement with plan of care. Level of Care: Express Care Visit Vital Signs Vital signs: Vital Signs Temperature 36.9 C 09/28/22 11:20 Pulse R
== END 2022-09-28 12:57 | disposition home or self-care (01) ==
PROVIDERS: Emergency Provider Nurse Practitioner
DX: B34.9 Viral infection, unspecified (principal); Z20.822 Contact with and (suspected) exposure to COVID-19
CPT/HCPCS: 87081; 87426; 87804; 87880; 99213; C9803; G0463

== ENCOUNTER 2023-03-04 17:15 | Emergency (ER) | payer OTHER, SELFPAY ==
[2023-03-04 17:20] VITALS: BP 154/102; PULSE 86; RESP 16; TEMP 36.6; O2SAT 100
--- NOTE | 2023-03-04 17:32 | ED.URI ---
HPI - URI/Sore Throat General Chief Complaint: Upper Respiratory Infection Stated Complaint: sore throat Time Seen by Provider: 03/04/23 17:32 Source: patient Mode of arrival: ambulatory Limitations: no limitations History of Present Illness HPI Narrative: 22-year-old female presents with complaint sore throat, headaches, body aches, low-grade fever for 4 days. Denies nausea vomiting diarrhea. No cough or congestion. Patient's daughter is sick with similar symptoms. All systems reviewed and negative except as noted above. Related Data Home Medications Medication Instructions Recorded Confirmed lisinopril 20 mg tablet 20 mg PO DAILY 09/28/22 03/04/23 Allergies Allergy/AdvReac Type Severity Reaction Status Date / Time Penicillins Allergy Intermediate Unknown Verified 03/04/23 17:47 Review of Systems Review of Systems: CONSTITUTIONAL: Reports fever, chills, fatigue. EYES: Denies visual changes, redness, or discharge. ENT: Denies rhinorrhea, congestion. Reports sore throat. Denies otalgia. CARDIOVASCULAR: Denies chest pain, palpitations, or edema. RESPIRATORY: Denies cough or dyspnea. GASTROINTESTINAL: Denies abdominal pain, nausea, vomiting, or diarrhea. GENITOURINARY: Denies dysuria or hematuria. SKIN: Denies rash or itching. MUSCULOSKELETAL: Denies back pain, joint pain, or myalgia. NEUROLOGIC: Reports headache. Denies numbness, or weakness. PSYCHIATRIC: Denies anxiety or depression. All other systems reviewed are negative, except as documented in HPI. [facility] Past Medical History Medical History (Updated 03/04/23 @ 17:47 by Kaylin Estrada NP) No pertinent past medical history Surgical History Surgical History No pertinent past surgical history Family History Family History Mother Hypertension Father Hypertension Social History Social History Smoking status: Never smoker Second hand tobacco smoke exposure: No Substance use: never Lack of Transportation: No Lack of Food: Never True Current Housing: I Have Housing Concerned About Future Housing: No Difficulty Paying Gas/Electric Bills: No Difficulty Paying for Meds: No Currently Unemployed: No Education: High School Diploma/GED Difficulty w/ Childcare or Family Care: No Spiritual care concerns: No Comments At time of signature, agree with nursing past medical, surgical, social and family history. There is no relevant family history pertinent to the presenting complaint. Exam Narrative: GENERAL: This is a well-nourished, well-developed patient, in no apparent distress. HEAD: normocephalic, atraumatic. EYES: PERRL. Sclera clear/white. Vision is grossly intact. EARS: External ears normal, auditory canals clear and without drainage, TMs normal without perforation. Hearing grossly intact. NOSE: External nose normal with no obvious nasal discharge, nares without redness, no rhinorrhea. THROAT: Mucous membranes moist, erythema to posterior pharynx, tonsils 1+ bilaterally without exudates. NECK: Neck supple, non-tender without lymphadenopathy, masses or thyromegaly. CARDIOVASCULAR: Regular rate and rhythm without murmurs, gallops, or rubs. RESPIRATORY: Clear to auscultation. Breath sounds equal bilaterally. No wheezes, rales, or rhonchi. SKIN: warm, Dry, intact with no suspicious lesions or rash, good texture and turgor. NEURO: awake, alert, and oriented to person, place and time. There were no obvious focal neurologic abnormalities. EXTREMITIES: No joint tenderness, effusion, or edema noted. Course Course Level of Care: Express Care Visit Vital Signs Vital signs: Vital Signs Temperature 36.6 C 03/04/23 17:20 Pulse Rate 86 03/04/23 17:20 Respiratory Rate 16 03/04/23 17:20 Blood Pressure 154/102 H 03/04/23
== END 2023-03-04 17:49 | disposition home or self-care (01) ==
PROVIDERS: Emergency Provider Nurse Practitioner Family; PCP Family Medicine
DX: J02.0 Streptococcal pharyngitis (principal); I10 Essential (primary) hypertension; Z86.16 Personal history of COVID-19
CPT/HCPCS: 87880; 99213; G0463